=== PATIENT | male | born 1945 | race Caucasian/White ===

== ENCOUNTER 2016-06-16 10:07 | Inpatient (IN) | payer MEDICARE, OTHER ==
[2016-06-16] VITALS (9 sets, daily range): BP systolic 117–139; BP diastolic 72–85
[~2016-06-16] VITALS: Ht 177.8 cm; Wt 90.7 kg
[~2016-06-16 10:07] MED LIST: ALLO100T PO; ALLO300T PO; ATOR20TA58 PO; CEFAZOLIN 2GM PREMIX 50 ML IV PRN; COLC0.6T34 PO; FENTANYL PF 100 MCG/2 ML VIAL. IV PRN; HYDR-2666 PO; IV RINGERS,LACTATED 1000ML 1,000 ML IV SCH; LIDOCAINE 1% 1 ML SYRINGE. ID PRN; METF500T4 PO; NAPR500T PO; ONDANSETRON PF 4 MG/2 ML VIAL. IV PRN; PRED2.5T PO; PROCHLORPERAZINE 10 MG/2 ML VIAL. IV PRN; TAMS0.4C97 PO
[2016-06-16] MEDS ORDERED: BUPIVACAINE MPF 0.5% 30 ML VIAL. ONE (13:24)
[2016-06-16] MEDS ORDERED: ONDANSETRON PF 4 MG/2 ML VIAL. ONE (13:47)
[2016-06-16] MEDS ORDERED: PROPOFOL 20 ML IV ONE (13:47)
[2016-06-16] MEDS ORDERED: LIDOCAINE 2% 100 MG/5 ML SYRINGE. ONE (13:47)
[2016-06-16] MEDS ORDERED: DEXAMETHASONE SOD PHOS 20 MG/5 ML VIAL. ONE (13:47)
[2016-06-16] MEDS ORDERED: FENTANYL PF 100 MCG/2 ML VIAL. ONE ×2 (13:48→15:53)
[2016-06-16] MEDS ORDERED: PHENYLEPHRINE 10 MG/ML VIAL. ONE (13:48)
[2016-06-16] MEDS ORDERED: ROCURONIUM 50 MG/5 ML VIAL. ONE (13:48)
[2016-06-16] MEDS ORDERED: EPINEPHRINE 30 MG/30 ML VIAL. ONE (14:42)
--- NOTE | 2016-06-16 15:22 | HP ---
ADMIT DATE: 06/16/2016 CHIEF COMPLAINT: Left shoulder pain and weakness. HISTORY OF PRESENT ILLNESS: The patient has had longstanding left shoulder pain. 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 MRI had showed a full-thickness rotator cuff tear, superior labrum, and biceps anchor as well, and we therefore discussed Surgical evaluation and treatment. PAST MEDICAL HISTORY: Significant for gout, hypercholesterolemia, and type 2 diabetes. PAST SURGICAL HISTORY: Inguinal hernia repair. FAMILY HISTORY: Denies any family history. SOCIAL HISTORY: Denies smoking or drug use. Occasional social drinker of alcohol. MEDICATIONS: Include allopurinol, metformin, and simvastatin. ALLERGIES: He has no known drug allergies. REVIEW OF SYSTEMS: No fever, chills, chest pain, shortness of breath, or other constitutional symptoms. PHYSICAL EXAMINATION: VITAL SIGNS: Per admission sheet. HEENT: Atraumatic, normocephalic. HEART: Regular rate and rhythm. LUNGS: Clear to auscultation. ABDOMEN: Benign. EXTREMITIES: Examination of left shoulder reveals weakness in all planes, limited particularly secondary to pain and resisted abduction and external rotation. No apprehension or instability. Normal parascapular motion, normal examination of the contralateral shoulder, bilateral elbows, and wrists. IMAGING: MRI shows a complete tear of the supraspinatus and significant involvement of the superior labrum and biceps anchor area. TREATMENT PLAN: We talked about operative and nonoperative treatment options associated with rotator cuff and also with the labrum. I expect rotator cuff repair in terms of surgical treatment and a possible biceps tenodesis given the involvement shown on the MRI. We talked about risks, benefits, postoperative course of the procedure, the rationale for protection, long recovery period expected, possibility of nonhealing, nerve or blood vessel damage, medical or other anesthetic complications, and infection among others. All of his questions were answered. Consent was obtained. He agrees to proceed with operative evaluation and treatment which will occur on an outpatient basis today. KALYAN PINK MD DR: MIKAYLA/kim JOB#: [id number] / [id number] MANI Smalls MD
[2016-06-16] MEDS ORDERED: GLYCOPYRROLATE 1 MG/5 ML VIAL. ONE (15:53)
[2016-06-16] MEDS ORDERED: NEOSTIGMINE METHYLSULFATE 5 MG/5 ML SYRINGE. ONE (15:53)
--- NOTE | 2016-06-16 17:20 | PDOC ---
BRIEF OPERATIVE NOTE Date: Jun 16, 2016 Pre-Op Diagnosis rotator cuff tear, possible slap Post-Op Diagnosis labral fraying, intact anchor, impingement, ac djd Procedure Performed left shoulder arthroscopic rotator cuff repair, distal clavicle excision, decompression, labral debridement Surgeon Douglas Anesthesia Type: General, Regional Blood Loss 5cc Findings above Complications none KALYAN PINK MD Jun 16, 2016 17:20
--- NOTE | 2016-06-16 17:24 | DISCH ---
DISCHARGE INSTRUCTIONS Condition on Discharge Condition on Discharge: Stable Activity After Discharge Activity Instructions for Disc: Other, see below Other activity instructions: fine motor use with elbow at side only, eat, type , pendulum swings ok Exercise Instruction after Dis: Exercise per therapy Diet after Discharge Diet after Discharge: Regular Wound Incision Care Wound/Incision Care: Ice to area for comfort, Change dressing Other wound/incision instructi: remove dressing 2 days may then shower Community/Resources/Services Services at Discharge: PT EVALUATE & TREAT Contacting the DR. after DC Call your doctor for: Concerns you may have Follow-Up Follow up with: Douglas 1 week KALYAN PINK MD Jun 16, 2016 17:24
[2016-06-16] MEDS ORDERED: OXYC-244 PO (17:25)
[2016-06-16] MEDS: MORPHINE SULFATE 2 MG/ML DISP.SYRIN. IV PRN ×4 (17:32→18:55)
[2016-06-16] MEDS ORDERED: KETOROLAC TROMETHAMINE 30 MG/ML INJ. ONE (17:55)
[2016-06-16] MEDS ORDERED: KETOROLAC TROMETHAMINE 30 MG/ML INJ. IV PRN (18:00)
[2016-06-16] MEDS ORDERED: OXYCODONE/APAP 7.5/325 TABLET. PO PRN ×3 (18:30→20:00)
[2016-06-16] MEDS ORDERED: ACETAMINOPHEN INTRAVENOUS 100 ML IV ONE (19:00)
[2016-06-16] MEDS: HYDROmorphone 2 MG/ML VIAL IV PRN ×2 (19:12→19:23)
[2016-06-16] MEDS: IV DEXTROSE 5 %-0.45 % NACL 1,000 ML IV SCH (19:49)
[2016-06-16] MEDS ORDERED: DEXTROSE 50% 25 GM / 50ML DISP.SYRIN. IV PRN (20:00)
[2016-06-16] MEDS ORDERED: PROCHLORPERAZINE 5 MG TABLET. PO PRN (20:00)
[2016-06-16] MEDS ORDERED: CALCIUM CARBONATE 500 MG TAB.CHEW PO PRN (20:00)
[2016-06-16] MEDS ORDERED: ZOLPIDEM 5 MG TABLET. PO PRN (20:00)
[2016-06-16] MEDS ORDERED: HYDROmorphone 2 MG/ML VIAL IV PRN (20:00)
[2016-06-16] MEDS ORDERED: TRAMADOL 50 MG TABLET. PO PRN ×2 (20:00)
[2016-06-16] MEDS ORDERED: HYDROCODONE/APAP 7.5/325MG TABLET. PO PRN (20:00)
[2016-06-16] MEDS ORDERED: HYDROCODONE/APAP 10/325 TABLET. PO PRN (20:00)
[2016-06-16] MEDS ORDERED: ACETAMINOPHEN 325 MG TABLET. PO PRN (20:00)
[2016-06-16] MEDS ORDERED: 0.9 % SODIUM CHLORIDE 10 ML DISP.SYRIN. IV PRN (20:00)
[2016-06-16] MEDS ORDERED: OXYCODONE/APAP 5/325 TABLET. PO PRN (20:00)
[2016-06-16] MEDS: CELECOXIB 200 MG CAPSULE. PO SCH (21:20)
[2016-06-17 03:00] VITALS: BP 122/74
[2016-06-17] MEDS: IV DEXTROSE 5 %-0.45 % NACL 1,000 ML IV SCH (05:49)
[2016-06-17] MEDS ORDERED: MAGNESIUM HYDROXIDE 2,400 MG/30 ML ORAL.SUSP. PO PRN (06:00)
[2016-06-17 06:34] VITALS: BP 116/61
[2016-06-17] MEDS: CELECOXIB 200 MG CAPSULE. PO SCH (07:42)
[2016-06-17] MEDS ORDERED: METFORMIN 500 MG TABLET. PO SCH (08:00)
[2016-06-17] MEDS ORDERED: SENNOSIDES/DOCUSATE 8.6/50MG TABLET. PO SCH (09:00)
[2016-06-17] MEDS ORDERED: ALLOPURINOL 300 MG TABLET. PO SCH (09:00)
[2016-06-17] MEDS ORDERED: FERROUS SULFATE 325 MG TABLET. PO SCH (09:00)
[2016-06-17] MEDS ORDERED: MULTIVITAMIN with MINERAL TABLET. PO SCH (09:00)
[2016-06-17 11:08] LABS: HEMATOCRIT 37.3 % (39.0-53.0); HEMOGLOBIN 12.9 g/dL (13.0-17.5)
--- NOTE | 2016-06-17 12:57 | OP ---
DATE OF SURGERY: 06/16/2016 PREOPERATIVE DIAGNOSIS: Full-thickness supraspinatus tear and likely biceps superior labrum tear along with impingement and acromioclavicular joint pain, adhesive capsulitis. POSTOPERATIVE DIAGNOSIS: Full-thickness supraspinatus tear with retraction, superior labral fraying with overall otherwise intact biceps anchor attachment, large subacromial spur with impingement, and acromioclavicular joint degenerative disease. PROCEDURE: Left shoulder arthroscopy, arthroscopic rotator cuff repair, distal clavicle excision, superior labral debridement, subacromial decompression, and manipulation and arthroscopic lysis of adhesions. SURGEON: Zhou Cole MD. ANESTHESIA: General plus scalene block. ESTIMATED BLOOD LOSS: 5 mL. COMPLICATIONS: None. OPERATIVE INDICATIONS: The patient is a 70-year-old male with increasing left shoulder pain and weakness, unresponsive to nonoperative treatment including physical therapy and activity modification. I had gone over with him the risks, benefits, postoperative course of possible surgical treatment including the long recovery process even under the best of circumstances that need for significant physical therapy, the rationale for protection of the repair, possibility of nonhealing, infection, nerve or blood vessel damage, medical or other anesthetic complications among others. All of his questions were answered. Consent was obtained, and he agrees to proceed with operative evaluation and treatment. OPERATIVE TECHNIQUE: The patient was identified, procedure was verified, and the patient was placed in the supine position on the operating table. After adequate amounts of general endotracheal anesthesia plus a preexisting scalene block were obtained, the right upper extremity was prepped and draped in standard sterile fashion, and after timeout was performed, the patient and procedure were identified and verified, examined under anesthesia and was found to have significant decrease in his terminal range of motion particularly in forward elevation where he lacked about 60 degrees and external rotation in abduction where he lacked about 50-60 degrees. Minimal internal rotation deficit was present. He was first manipulated under anesthesia with audible and palpable release of some tissues. He was then placed in the arthroscopic arm nunes with a total of 10 pounds of traction, and standard posterior portal was established. Anterior portal was established using spinal needle localization. Shoulder joint was systematically examined. Arthroscopic lysis of adhesions were performed to resect any remaining capsular adhesions in the anterior pouch. Glenohumeral joint was otherwise in good condition. Superior labrum was found to have fraying present, and when that was debrided back to stable tissue using arthroscopic shaver, the biceps anchor was examined and noted to be intact, not requiring tenodesis. Subscapularis insertion was likewise intact. The biceps had only minor irritation and was well seated in the groove. No fraying present. On examination of the supraspinatus insertion, he had a full-thickness retracted tear present. Bare area of the humerus and infraspinatus and remainder of capsular insertions were noted to be normal. The subacromial space was then entered after confirmation of the rotator cuff tear. The bursa was cleared to allow visualization, and rotator cuff was mobilized for good repair, and the footprint was arthroscopically debrided. At this point given that the tear was certainly repairable, I then proceeded to debride a large anterior acromial spur which was causing significant impingement back to a type 1 acromion using cutting block technique. Distal clavicle was noted to be narrowed and degenerative and was excised 1 cm preserving the overlying joint capsule for stability. Bony fragments were then removed. Two [employer] anchors were placed on the medial groove of the footprint, and mattress sutures were placed, secured by sliding locking knots backed up by alternating post-half hitches, and lateral row repair was accomplished with Multifix S anchors to ____ with sutures in a crossing fashion. Excellent watertight repair was noted to be present in all degrees of internal and external rotation. The joint was drained of arthroscopic fluid, and portals were closed with nylon suture. Sterile dressings were applied. He was placed in an immobilizer, extubated, and transferred to postop holding in stable condition having tolerated the procedure well. Postoperatively, I did receive a call from the Recovery Room that he was in significant pain. He had postoperative hypoxia with decreased oxygen saturations, was in no distress, but was unable to go home due to the amount of sedation and poor pain relief he received from the interscalene block and was admitted overnight. ZHOU COLE MD DR: MIKAYLA/kim JOB#: [id number] / [id number]
[2016-06-17] MEDS ORDERED: BISACODYL 10 MG SUPP.RECT. PR PRN (16:00)
[2016-06-17] MEDS ORDERED: ATORVASTATIN CALCIUM 20 MG TABLET PO SCH (21:00)
--- NOTE | 2016-06-17 23:06 | DS ---
DATE OF DISCHARGE: 06/17/2016 PRINCIPAL DIAGNOSIS: Left shoulder rotator cuff tear. PROCEDURE: Arthroscopic rotator cuff repair. ADDITIONAL DIAGNOSIS: Postoperative hypoxia. DISCHARGE MEDICATIONS: Include resume home medications as well as Percocet 7.5/325 one to two p.o. q. 4 hours p.r.n. pain. DISCHARGE INSTRUCTIONS: Include passive range of motion of left shoulder only, but immediate physical therapy as he had preoperative adhesive capsulitis. He wants to go to a physical therapist he had had previously ____ and I gave him a written prescription to start right away. May remove dressings in 2 days. May then shower. Report any redness, drainage, fever, chills, uncontrolled pain or other problems. Follow up one week with Dr. Cole. BRIEF DESCRIPTION OF HOSPITAL COURSE: The patient underwent a planned outpatient arthroscopic rotator cuff repair. Postoperatively; however, did not have very good results from the interscalene block in terms of pain relief and was quite sedated with adequate pain medication and had decreased oxygen saturations requiring his admission. Postoperative day #1, he felt much better, pain was well controlled. He worked with physical therapy and some passive range of motion and restrictions. I covered that with him in detail as well and he was discharged to home in stable condition with again outpatient physical therapy plan. KALYAN COLE MD DR: MIKAYLA/nts JOB#: [id number] / [id number]
[2016-06-18] MEDS ORDERED: OXYCODONE ER 10 MG TAB.ER.12H. PO SCH (17:00)
== END 2016-06-17 13:50 | disposition home or self-care (01) | DRG 512 ==
LOC: SURG 10:07 → 4 SOUTHEST 19:49
PROVIDERS: ADMIT Orthopaedic Surgery; ATTEND Orthopaedic Surgery
PROC: 0RBK4ZZ Excision of Left Shoulder Joint, Percutaneous Endoscopic Approach (ICD-10-PCS; 2016-06-16)
PROC: 0PBB4ZZ Excision of Left Clavicle, Percutaneous Endoscopic Approach (ICD-10-PCS; 2016-06-16)
PROC: 0RNK4ZZ Release Left Shoulder Joint, Percutaneous Endoscopic Approach (ICD-10-PCS; 2016-06-16)
PROC: 0LQ24ZZ Repair Left Shoulder Tendon, Percutaneous Endoscopic Approach (ICD-10-PCS; principal; 2016-06-16 11:55)
DX: M75.100 Unspecified rotator cuff tear or rupture of unspecified shoulder, not specified as traumatic (principal); E11.9 Type 2 diabetes mellitus without complications; E78.00 Pure hypercholesterolemia, unspecified; M10.9 Gout, unspecified; M19.019 Primary osteoarthritis, unspecified shoulder; M75.00 Adhesive capsulitis of unspecified shoulder; Z79.899 Other long term (current) drug therapy; R09.02 Hypoxemia
CPT/HCPCS: 36415; 82947; 85014; 85018; C1713; J0131; J0171; J0690; J0780; J1100; J1170; J1885; J2270; J2405; J2704; J2710; J3010; J3490; J7120; 97110; 97116

== ENCOUNTER 2016-08-06 16:43 | Emergency (ER) | payer MEDICARE, OTHER ==
[~2016-08-06] VITALS: Ht 180.3 cm; Wt 89.8 kg
[~2016-08-06 16:43] MED LIST changes: -CEFAZOLIN 2GM PREMIX 50 ML IV PRN; -FENTANYL PF 100 MCG/2 ML VIAL. IV PRN; -HYDR-2666 PO; +HYDR-2758 PO; -IV RINGERS,LACTATED 1000ML 1,000 ML IV SCH; -LIDOCAINE 1% 1 ML SYRINGE. ID PRN; -ONDANSETRON PF 4 MG/2 ML VIAL. IV PRN; +OXYC-327 PO; -PROCHLORPERAZINE 10 MG/2 ML VIAL. IV PRN
[2016-08-06 17:00] VITALS: BP 134/69
[2016-08-06] MEDS ORDERED: DICL100G18 TP (17:42)
--- NOTE | 2016-08-06 17:42 | PHYS DOC ---
Past Medical History Past Medical History: Diabetes-Type II, High Cholesterol, Other Additional Past Medical Histor: BPH,GOUT Past Surgical History: Other Additional Past Surgical Histo: INGUINAL HERNIA Alcohol Use: Occasionally Drug Use: None Adult General Chief Complaint Chief Complaint: LOWER EXT PAIN HPI HPI Patient is a 70 year old male with history of high cholesterol, gout and diabetes type 2 who presents today with moderate right anterior knee pain chronic in nature but got worse this morning. Patient states he follows up with the orthopedic doctor for meniscus injury and joint effusion. Patient denies any injury. Patient states he typically does not take anything for pain. He has history of gout and is on on Allopurinol. Review of Systems Review of Systems Constitutional: Denies fever or chills [] Eyes: Denies change in visual acuity, redness, or eye pain [] Musculoskeletal: Right knee pain Integument: Denies rash or skin lesions [] Neurologic: Denies headache, focal weakness or sensory changes [] Endocrine: Denies polyuria or polydipsia [] Allergies Allergies Allergies Coded Allergies Type Severity Reaction Last Updated Verified No Known Drug Allergies 06/16/16 No Physical Exam Physical Exam Constitutional: Well developed, well nourished, no acute distress, non-toxic appearance. [] Skin: Warm, dry, no erythema, no rash. [] Back: No tenderness, no CVA tenderness. [] Extremities: Right knee with no obvious edema and obvious ecchymosis. No tenderness on palpation of the right knee. Negative Marina sign and negative Marielle's sign negative anterior-posterior drawer sign to the right knee. +2 right pedal pulse. Cap refill less than 2 seconds the right lower extremity. Neurologic: Alert and oriented X 3, normal motor function, normal sensory function, no focal deficits noted. [] Psychologic: Affect normal, judgement normal, mood normal. [] Current Patient Data Vital Signs Vital Signs Date Time Temp Pulse Resp B/P (MAP) Pulse Ox O2 Delivery O2 Flow Rate FiO2 08/06/16 17:00 98.3 76 14 97 Room Air 98.3 EKG EKG [] Radiology/Procedures Radiology/Procedures [] Course & Med Decision Making Course & Med Decision Making Pertinent Labs and Imaging studies reviewed. (See chart for details) Patient is in the ED with exacerbation of right knee pain. Right knee x-rays interpreted by Dr. White are negative for any acute findings. Patient was placed in a knee immobilizer in the ED. Will be discharged with Voltaren cream. Ice elevation encouraged. Follow-up with orthopedic doctor tomorrow for chronic knee pain. Dragon Disclaimer Dragon Disclaimer This electronic medical record was generated, in whole or in part, using a voice recognition dictation system. Departure Departure Impression: Primary Impression: Knee pain, chronic Disposition: HOME, SELF-CARE Condition: STABLE Referrals: MANI GODDARD MD (PCP) follow up with your orthopedic doctor as soon as you can ALICE JIMENES MD Patient Instructions: Knee Pain, [id number] Additional Instructions: You were seen with right knee pain. Please follow-up with the orthopedic doctor as soon as you can. Use the provided cream as needed. Ice and elevate the extremity. Wear the immobilizer as tolerated. Scripts Diclofenac Sodium (VOLTAREN) 100 Gm Gel..gram. 1 GM TP QID, #100 GM 2 Refills Prov: BISHOP CALDWELL APRN 08/06/16 Problem Qualifiers Primary Impression: Knee pain, chronic Laterality: right Qualified Codes: M25.561 - Pain in right knee; G89.29 - Other chronic pain BISHOP CALDWELL APRN Aug 06, 2016 17:42
--- NOTE | 2016-08-07 08:23 | RAD ---
Indication pain. No history of injury. AP oblique and lateral views of the right knee were obtained. No acute bony finding is seen. There are no significant degenerative changes apparent on plain films. IMPRESSION: Normal plain films of the knee
== END 2016-08-06 17:53 | disposition home or self-care (01) ==
LOC: ER 16:43
DX: G89.29 Other chronic pain (principal); M25.561 Pain in right knee; E11.9 Type 2 diabetes mellitus without complications; E78.5 Hyperlipidemia, unspecified; N40.0 Benign prostatic hyperplasia without lower urinary tract symptoms; M10.9 Gout, unspecified
CPT/HCPCS: 29505; 73564; 99284-25

== ENCOUNTER → 2016-08-13 | Outpatient (CLI) | payer MEDICARE, OTHER ==
[2016-08-06 17:00] VITALS: BP 134/69
[~2016-08-13] MED LIST changes: +DICL100G18 TP
--- NOTE | 2016-08-13 15:54 | KCIC ---
MR of the right knee HISTORY: Right knee pain medially and laterally. Intermittent for months. TECHNIQUE: Routine multiplanar sequences are obtained. FINDINGS: No evidence of medial meniscal tear. No evidence of lateral meniscal tear. Anterior and posterior cruciate ligaments are intact. Medial collateral ligament is intact. Iliotibial band unremarkable. Fibular collateral ligament, popliteus tendon and biceps femoris tendon are intact. Extensor mechanism is intact. Large joint effusion. No acute articular cartilage defect. No evidence of loose body. Minimal marrow edema at the lateral femoral condyle. No aggressive bone destruction. No evidence of acute fracture. No significant Gallardo's cyst. Mild disorganized fluid tracking along the posterior lateral corner of the knee. IMPRESSION: 1. Mild disorganized fluid or hemorrhage along the posterolateral corner of the knee is nonspecific, but can be associated with small ligament injury at the posterolateral corner. 2. Otherwise, no evidence of meniscal tear or internal derangement. Electronically signed by: Yoni Mcbride MD (08/13/2016 3:51 PM)
== END ==
LOC: KCIC MRI 13:51
PROVIDERS: ATTEND Physician Assistant
DX: M25.461 Effusion, right knee (principal)
CPT/HCPCS: 73721